=== PATIENT | female | born 1960 | race African-American/Black ===

== ENCOUNTER → 2024-06-05 | Day surgery (SDC) | payer OTHER ==
[~2024-06-05] VITALS: Ht 167.6 cm; Wt 90.7 kg
[~2024-06-05] MED LIST: AMLO1TAB22 PO; ASPI-543 PO; CHLO50TA PO; GLYCOPYRROLATE 0.2 MG/ML 1ML VIAL ONE; HYDROmorphone HCL 2 MG/ML VL/or syr IV PRN; LIDOCAINE 2% (LOCAL ANESTH.) PF 5ml SDV ONE; MIDAZOLAM HCL 2MG/2ML 2ml VIAL (1mg/ml) ONE; ONDANSETRON HCL 4 MG/2 ML VIAL ONE; PANT40TA2 PO; POTA-220 PO; PROG200C21 PO; PROPOFOL 10 MG/ML 20 ML IV ONE; SEMA2.4I SC; SOLI10TA39 PO; fentaNYL CITRATE 100 MCG/2 ML VL ONE
--- NOTE | 2024-06-05 08:59 | DVHHP2 ---
GI H&P Pre-Op Assessment Date: 06/05/24 Chief complaint: Dysphagia, reflux, epigastric pain HPI: per clinic note Past medical history: per clinic note Past surgical history: per clinic note Family history: per clinic note Physical exam: General: NAD, AAOX3 HEENT: PERRL, no scleral icterus, normal hearing, gums without lesions or bleeding, oropharynx clear without erythema or exudate. Neck: Supple without enlargement of the thyroid, or lymphadenopathy. Chest: Normal size and shape, no tenderness, lung kelly clear to auscultation and percussion, nonlabored breathing. Heart: RRR, no murmur Abdomen: non-distended, no tenderness to palpation, +BS, no hepatosplenomegaly Extremities: no edema Neurological: CN II-XII intact, sensation intact in all extremities, 5+ strength in all extremities Skin: No rashes, No jaundice Assessment: - dysphagia, reflux, epigastric pain Plan: - EGD - Risks (bleeding, infection, perforation, reaction to sedation medications and cardiopulmonary arrest) and benefit of the procedure were explained to patient. Patient agrees to undergo the procedure. SASHA JUAN MD Jun 05, 2024 08:59
--- NOTE | 2024-06-05 09:01 | DVHOP2 ---
Operative Report DATE OF OPERATION: 06/05/24 PROCEDURE: Upper Endoscopy. PREOPERATIVE INDICATION: The patient is a 63 -year-old female undergoing endoscopy for dysphagia, reflux and epigastric pain. POSTOPERATIVE DIAGNOSES: 1. Residual food in the stomach. PROCEDURE PERFORMED BY: Hemant Ferrell SCOPE: Olympus videoendoscope. ASA CLASS: 2 PREOPERATIVE MEDICATIONS: MAC with Dr Pena PROCEDURE IN DETAIL: After obtaining an informed consent, the patient was place d on left lateral decubitus position. The patient was then sedated with the above medications. A bite block was placed between she teeth. The endoscope was then passed through the oropharynx, into the esophagus, and through the stomach and pylorus up to the second and third part of the duodenum. The duodenal was normal in appearance. There was large amount of residual food in the stomach. The gastric mucosa is normal in appearance. The GE junction was normal in appearance at 43 cm. The esophagus was normal in appearance. The endoscope was then withdrawn. The patient tolerated the procedure well without difficulty. COMPLICATIONS : None SPECIMENS: None DISPOSITION: D/C to home PLAN: 1. Patient has gastroparesis. She will follow up GI Clinic for follow-up treatment. HEMANT FERRELL MD Jun 05, 2024 09:01
--- NOTE | 2024-06-05 09:02 | DVHDS2 ---
Physician Discharge Progress N Final Diagnosis: Residual food in the stomach Operations or Procedures: Operations or Procedures EGD Condition on Discharge: Good Disposition: Home Discharge Instructions: Diet: Regular Activity: No Restrictions, As Tolerated Medications: Resume with previous home medications Follow Up Care: Discharge Statement: "Patient was advised to return to the ER or call 911 if any headaches, dizziness, shortness of breath, chest pain, abdominal pain, bleeding, fevers, or worsening of medical condition. Patient was counseled about treatment plan, medications, possible side effects, patientverbalized understanding. All questions were answered to the best of my ability. This discharge took greater then 30 minutes in planning, reviewing documentation, counseling the patient, and discussing with other team members." SASHA JUAN MD Jun 05, 2024 09:02
[2024-06-05 09:05] VITALS: TEMP 97.3; O2SAT 98
[2024-06-05 09:40] VITALS: BP 126/75; PULSE 82; RESP 12; O2SAT 95
== END | disposition home or self-care (01) ==
LOC: GI 07:18
PROVIDERS: ATTEND Internal Medicine Gastroenterology
DX: R13.10 Dysphagia, unspecified (principal); K21.9 Gastro-esophageal reflux disease without esophagitis; R10.13 Epigastric pain; K31.89 Other diseases of stomach and duodenum; K31.84 Gastroparesis; I10 Essential (primary) hypertension; F32.A Depression, unspecified; Z95.0 Presence of cardiac pacemaker; Z88.0 Allergy status to penicillin; Z88.5 Allergy status to narcotic agent; Z88.8 Allergy status to other drugs, medicaments and biological substances
CPT/HCPCS: 43235; J2003; J2250; J2405; J2704; J3010; J7030